=== PATIENT | male | born 1995 | race Asian ===

== ENCOUNTER 2022-09-14 09:44 | Inpatient (IN) | payer BC ==
[2022-09-14] MEDS ORDERED: EPINEPHrine 1 MG/ML AMP ONE (10:46)
[2022-09-14] MEDS ORDERED: Bupivacaine PF 0.5% 30 ML VIAL ONE (10:46)
[2022-09-14] MEDS ORDERED: SUGAMMADEX SODIUM 200 MG/2 ML VIAL ONE (10:53)
[2022-09-14] MEDS ORDERED: Fentanyl 250 MCG/5 ML VIAL ONE (10:53)
[2022-09-14] MEDS ORDERED: cefOXitin 2 GM VIAL ONE (10:59)
[2022-09-14] MEDS ORDERED: Sodium Chloride 0.9% 0 ML ONE (10:59)
[2022-09-14] MEDS ORDERED: Succinylcholine 200 MG/10 ml SYRINGE FS ONE (11:08)
[2022-09-14] MEDS ORDERED: Ketorolac Tromethamine 30 MG/ML VIAL ONE (11:08)
[2022-09-14] MEDS ORDERED: Dexamethasone 20 MG/5 ML VIAL ONE (11:08)
[2022-09-14] MEDS ORDERED: Rocuronium Bromide 10 MG/ML (10ML VIAL) ONE (11:08)
[2022-09-14] MEDS ORDERED: PROPOFOL 200 MG/20 ML VIAL ONE (11:08)
[2022-09-14] MEDS ORDERED: Ondansetron PF 4 MG/2 ML Vial ONE (11:08)
[2022-09-14] MEDS ORDERED: Lidocaine 1% PF 5 ML VIAL ONE (11:08)
[2022-09-14] MEDS ORDERED: Ondansetron PF 4 MG/2 ML Vial IVP PRN (12:03)
[2022-09-14] MEDS ORDERED: HYDROcodone/Acetaminophen 10/325 mg Tablet PO PRN ×2 (12:03)
[2022-09-14] MEDS ORDERED: hydrALAZINE 20 MG/ML VIAL SLOW IVP PRN (12:03)
[2022-09-14] MEDS ORDERED: Dextrose 50% Abboject 50 ML SYRINGE SLOW IVP PRN (12:03)
[2022-09-14] MEDS ORDERED: Glucagon 1 MG/ML KIT IM PRN (12:03)
[2022-09-14] MEDS ORDERED: Dextrose 5% in Water 1,000 ML IV PRN (12:03)
[2022-09-14] MEDS ORDERED: Acetaminophen 325 MG TAB PO PRN (12:03)
[2022-09-14] MEDS ORDERED: Promethazine HCl 25 MG/ML VIAL IM PRN (12:03)
[2022-09-14] MEDS ORDERED: Morphine 2 MG/ML VIAL SLOW IVP PRN (12:03)
[2022-09-14] MEDS ORDERED: Morphine 4 MG/ML VIAL SLOW IVP PRN (12:03)
[2022-09-14] MEDS ORDERED: Ipratropium/Albuterol 3 ML NEB NEB PRN (12:03)
[2022-09-14] MEDS: D5 1/2 NS w/20 mEq KCL 1,000 ML IV SCH ×2 (12:20→20:19)
[2022-09-14] MEDS ORDERED: D5 1/2 NS w/20 mEq KCL 1,000 ML ONE (13:05)
[2022-09-14] MEDS ORDERED: Piperacillin/Tazobactam 3.375 GM in Sodium Chloride 0.9% 100 ML IVPB SCH ×2 (14:30→16:15)
[2022-09-14] MEDS ORDERED: Sodium Chloride 0.9% 100 ML ONE (14:54)
[2022-09-14] MEDS ORDERED: Piperacillin/Tazobactam 3.375 GM VIAL ONE (14:54)
[2022-09-14] MEDS ORDERED: fentaNYL 50 mcg/mL 1 mL Vial ONE (15:48)
[2022-09-14 17:25] VITALS: BMI 20.2
[2022-09-14] MEDS: Ketorolac Tromethamine 30 MG/ML VIAL IVP SCH ×2 (18:05→23:53)
[2022-09-14] MEDS: Famotidine/PF 20 mg/2ml Vial SLOW IVP SCH (20:18)
[2022-09-14] MEDS: Piperacillin/Tazobactam 3.375 GM in Sodium Chloride 0.9% 100 ML IVPB SCH (20:18)
[2022-09-14] MEDS: Famotidine 20 MG TAB PO SCH (20:19)
[2022-09-15] MEDS: Ketorolac Tromethamine 30 MG/ML VIAL IVP SCH ×3 (04:52→18:40)
[2022-09-15] MEDS: Piperacillin/Tazobactam 3.375 GM in Sodium Chloride 0.9% 100 ML IVPB SCH ×3 (04:52→21:24)
[2022-09-15] MEDS: D5 1/2 NS w/20 mEq KCL 1,000 ML IV SCH ×2 (05:05→15:53)
[2022-09-15 05:06] LABS: #Monocytes 0.7 thou/uL (0.11-0.59); #Neutrophils 11.3 thou/uL (1.40-6.50); %Basophils 0.1 % (0.0-1.0); %Lymphocytes 4.7 % (21.0-51.0); %Monocytes 5.2 % (0.0-10.0); %Neutrophils 89.1 % (42.0-75.0); Hematocrit 36.8 % (42.0-52.0); Hemoglobin 12.8 g/dL (14.0-18.0); Mean Corpuscular HGB CONC 34.8 g/dL (32.0-36.0); Mean Corpuscular Hemoglobin 31.1 pg (27.0-31.0); Mean Corpuscular Volume 89.5 fl (78.0-98.0); Mean Platelet Volume 9.2 fL (7.4-10.4); Platelet Count 139 10x3/uL (130-400); Red Blood Cell (RBC) Count 4.11 mill/uL (4.70-6.10); White Blood Cell (WBC) Count 12.6 10x3/uL (4.8-10.8)
[2022-09-15 05:31] LABS: Anion Gap 13 mmol/L (10-20); BUN (Urea Nitrogen) 9 mg/dL (8.9-20.6); Calc. Creatinine Clearance 118 mL/min (70-130); Calcium 8.9 mg/dL (7.8-10.44); Carbon Dioxide 23 mmol/L (22-29); Chloride 106 mmol/L (98-107); Estimated GFR 122; Glucose 121 mg/dL (70-105); Sodium 138 mmol/L (136-145)
[2022-09-15] MEDS: Famotidine/PF 20 mg/2ml Vial SLOW IVP SCH ×2 (09:32→21:25)
[2022-09-15] MEDS: Famotidine 20 MG TAB PO SCH ×2 (09:32→21:24)
[2022-09-16] MEDS: D5 1/2 NS w/20 mEq KCL 1,000 ML IV SCH ×2 (01:08→10:00)
[2022-09-16] MEDS: Ketorolac Tromethamine 30 MG/ML VIAL IVP SCH ×2 (01:08→04:38)
[2022-09-16] MEDS: Piperacillin/Tazobactam 3.375 GM in Sodium Chloride 0.9% 100 ML IVPB SCH (04:36)
[2022-09-16 04:50] LABS: #Monocytes 0.6 thou/uL (0.11-0.59); #Neutrophils 4.7 thou/uL (1.40-6.50); %Basophils 0.2 % (0.0-1.0); %Eosinophils 0.5 % (0.0-10.0); %Lymphocytes 19.4 % (21.0-51.0); %Monocytes 8.4 % (0.0-10.0); %Neutrophils 71.2 % (42.0-75.0); Hemoglobin 11.6 g/dL (14.0-18.0); Mean Corpuscular HGB CONC 34.1 g/dL (32.0-36.0); Mean Corpuscular Hemoglobin 30.5 pg (27.0-31.0); Mean Corpuscular Volume 89.5 fl (78.0-98.0); Mean Platelet Volume 9.2 fL (7.4-10.4); Platelet Count 142 10x3/uL (130-400); White Blood Cell (WBC) Count 6.5 10x3/uL (4.8-10.8)
[2022-09-16 05:03] VITALS: BP 114/72; TEMP 98.4
[2022-09-16] MEDS: Famotidine/PF 20 mg/2ml Vial SLOW IVP SCH (08:51)
[2022-09-16] MEDS: Famotidine 20 MG TAB PO SCH (08:51)
== END 2022-09-16 11:50 | disposition home or self-care (01) | DRG 340 ==
LOC: SDC 09:44 → SURG B 12:03
PROVIDERS: ADMIT Surgery; ATTEND Surgery
PROC: 0DTJ4ZZ Resection of Appendix, Percutaneous Endoscopic Approach (ICD-10-PCS; principal; 2022-09-14)
PROC: 0D9J40Z Drainage of Appendix with Drainage Device, Percutaneous Endoscopic Approach (ICD-10-PCS; 2022-09-14)
PROC: 3E033XZ Introduction of Vasopressor into Peripheral Vein, Percutaneous Approach (ICD-10-PCS; 2022-09-14)
DX: K35.33 Acute appendicitis with perforation, localized peritonitis, and gangrene, with abscess (principal)
CPT/HCPCS: 36415; 80048; 85025; 87070; 87076; 87077; 87186; 87205; 88304; A4649; J0171; J0694; J1100; J1650; J1885; J2405; J2543; J2704; J3010; J3480; J3490; S0020; S0028